=== PATIENT | female | born 1975 ===

== ENCOUNTER 2018-02-28 17:47 | Emergency (ER) | payer MEDICAID ==
[2018-02-28 19:19] VITALS: O2SAT 100
[2018-02-28] MEDS ORDERED: Sodium Chloride 0.9% 1,000 ML IV STA (19:19)
--- NOTE | 2018-02-28 19:24 | C.PDOC ---
History Of Present Illness 42 y/o F c PMHx asthma p/w headache and dizziness x 3 days. Describes headache as L sided, severe, associated with nausea and photophobia. She also reports a spinning sensation which is worse when moving her head. Denies fever, trauma, neck stiffness, vision change, abdominal pain, dyspnea, dysuria. Time Seen by Provider: 02/28/18 19:09 Chief Complaint (Nursing): Abdominal Pain Past Medical History Vital Signs: Last Vital Signs Temp 98.6 F 02/28/18 18:00 Pulse 76 02/28/18 19:00 Resp 24 02/28/18 19:00 BP 197/98 H 02/28/18 19:00 Pulse Ox 100 02/28/18 21:10 - Medical History PMH: Asthma, HTN Surgical History: Appendectomy Family History: States: No Known Family Hx - Social History Hx Alcohol Use: No Hx Substance Use: No - Immunization History Hx Tetanus Toxoid Vaccination: No Hx Influenza Vaccination: No Hx Pneumococcal Vaccination: No Review Of Systems Except As Marked, All Systems Reviewed And Found Negative. Constitutional: Negative for: Fever Cardiovascular: Negative for: Chest Pain Physical Exam - Physical Exam Additional Physical Exam Comments: Gen: NAD Head: NC/AT Eyes: Nystagmus ENT: MMM Neck: No rigidity Chest: No tenderness CV: Regular rate Lungs: CTA b/l Abd: Soft, NT Back: No CVA tenderness Skin: No rash Extremities: No edema Neuro: Alert, FTN/HTS normal, steady gait. Reproducible symptoms with Sergio Hallpike ED Course And Treatment - Laboratory Results Result Diagrams: 02/28/18 19:33 02/28/18 19:33 O2 Sat by Pulse Oximetry: 100 - CT Scan/US CT head Other Rad Studies (CT/US): Interpreted By Me, Read By Radiologist CT/US Interpretation: IMPRESSION: No CT evidence of acute intracranial abnormality. Medical Decision Making Medical Decision Making: Differential includes migraine headache with BPPV. Will treat symptomatically and reassess. CT Head: IMPRESSION: No CT evidence of acute intracranial abnormality. Patient feels better, symptoms resolved, will discharge with ENT follow up. Disposition - Disposition Referrals: Marcos Cooley MD [Staff Provider] - Disposition: HOME/ ROUTINE Disposition Time: 21:00 Condition: STABLE Prescriptions: Meclizine [Antivert] 25 mg PO TID PRN #20 tab PRN Reason: Dizziness Instructions: Vertigo (a Type of Dizziness) Forms: [email or web address] (Japanese) - Clinical Impression Clinical Impression: Vertigo, Headache
[2018-02-28 19:36] LABS: BASO # 0.1 K/uL (0.0-0.2); EOS # 0.6 K/uL (0.0-0.7); EOS % 6.6 % (0.0-4.0); HEMOGLOBIN 12.2 g/dL (11.0-16.0); LYMPH % 30.3 % (20.0-40.0); MEAN CELL VOLUME 82.7 fL (81.0-99.0); MEAN CORPUSCULAR HEMOGLOBIN 27.6 pg (27.0-31.0); MEAN CORPUSCULAR HGB CONC 33.3 g/dL (33.0-37.0); MONO # 0.6 K/uL (0.0-0.8); MONO % 6.2 % (0.0-10.0); NEUT # 5.4 K/uL (1.8-7.0); NEUT % 55.9 % (50.0-75.0); RBC 4.42 Mil/uL (3.80-5.20); RED CELL DISTRIBUTION WIDTH 13.9 % (11.5-14.5); WHITE BLOOD COUNT 9.7 K/uL (4.8-10.8)
[2018-02-28 19:48] LABS: ALB/GLOB RATIO 1.2 (1.0-2.1); ALT/SGPT 34 U/L (9-52); BLOOD UREA NITROGEN 12 mg/dL (7-17); GFR AFRICAN-AMERICAN > 60; GFR NON-AFRICAN AMERICAN > 60; LIPASE 72 U/L (23-300)
[2018-02-28 20:01] LABS: AST/SGOT 28 U/L (14-36); CALCIUM 8.6 mg/dl (8.6-10.4)
--- NOTE | 2018-02-28 20:59 | CT ---
EXAM: CT Head Without Intravenous Contrast CLINICAL HISTORY: 42 years old, female; Pain; Headache; Migraine; Aura effect not specified; Does not respond to medication; Severity not specified; Patient HX: C/O left sided headache TECHNIQUE: Axial computed tomography images of the head/brain without intravenous contrast. All CT scans at this facility use one or more dose reduction techniques, viz.: automated exposure control; ma/kV adjustment per patient size (including targeted exams where dose is matched to indication; i.e. head); or iterative reconstruction technique. Coronal and sagittal reformatted images were created and reviewed. COMPARISON: No relevant prior studies available. FINDINGS: Brain: No hemorrhage. No significant white matter disease. No edema. Ventricles: No hydrocephalus. Bones: Skull is intact. Sinuses: No acute sinusitis. Mastoid air cells: No mastoid effusion. IMPRESSION: No CT evidence of acute intracranial abnormality.
[2018-02-28 21:35] VITALS: BP 168/90; PULSE 74; RESP 20; TEMP 98
--- NOTE | 2018-03-02 12:06 | CARD ---
APPROVED REPORT EKG Measurement Heart [id number] <Conclusion> Normal sinus rhythm with sinus arrhythmia T wave abnormality, consider lateral ischemia Prolonged QT Abnormal ECG
== END 2018-02-28 21:35 | disposition home or self-care (01) ==
LOC: C.ER 17:47
DX: R42 Dizziness and giddiness (principal); R51 Headache
CPT/HCPCS: 70450; 80053; 82948; 83690; 85025; 93005; 96374; 96375; 99285; J1885; J2765; J7030